=== PATIENT | male | born 1965 | race Caucasian/White ===

== ENCOUNTER 2021-03-23 14:56 | Emergency (ER) | payer OTHER, SELFPAY ==
--- NOTE | ~2021-03-23 | CT_ITS ---
EXAMINATION: CT abdomen pelvis w con DATE: 03/23/2021 18:46 INDICATION: Generalized abdominal pain. TECHNIQUE: Computed tomography (CT) of the abdomen and pelvis was performed with 100 mL Omnipaque 350 intravenous contrast. Automated exposure control and iterative reconstruction technique were employe d. The dose-length product was 596.28 mGy-cm. COMPARISON: None. FINDINGS: The visualized portions of the lung bases demonstrate patchy groundglass opacities in the l ower lobes, right middle lobe, and lingula. There is mild atelectasis bilaterally. No pleural effusio n. The heart size is normal. No pericardial effusion. There is diffuse hepatic steatosis. There are c hanges of cholecystectomy. Calcifications in the spleen are consistent with old granulomatous disease . The pancreas and adrenal glands are normal. There are cysts in the kidneys measuring up to 24 mm on the left. There are bilateral inguinal hernias containing fat. There is diverticulosis of the colon without evidence of diverticulitis. The appendix is not visualized. There are no dilated loops of bow el. There is moderate lumbar spondylosis and mild thoracic spondylosis. IMPRESSION: 1. Multifocal lung disease, likely atypical pneumonia such as COVID-19 pneumonia. Reviewed, dictated and finalized at location A. IMPRESSION: 1. Multifocal lung disease, likely atypical pneumonia such as COVID-19 pneumoni a.
[2021-03-23 15:11] VITALS: BP 135/86; PULSE 97; RESP 16; TEMP 37.6; O2SAT 97
[2021-03-23 15:34] LABS: Basophils Percent Auto 0.4 % (0.2-1.2); Hemoglobin 17.9 g/dL (14.0-18.0); Immature Granulocyte Absolute 0.06 K/mm3 (0.00-0.031); Immature Granulocyte Percent A 0.8 % (0-0.5); Lymphocytes Absolute Auto 1.23 K/mm3 (0.9-3.2); Lymphocytes Percent Auto 15.9 % (18.3-44.2); Mean Corpuscular HGB Conc 33.8 g/dl (32-36); Mean Corpuscular Hemoglobin 26.2 pg (26-34); Mean Corpuscular Volume 77.6 fl (80-100); Mean Platelet Volume 9.6 fl (7.4-10.4); Monocytes Absolute Auto 1.5 K/mm3 (0.1-0.6); Neutrophils Absolute Auto 4.9 K/mm3 (1.3-6.7); Neutrophils Percent Auto 63.9 % (45.5-73.1); Platelet Count Result 207 k/mm3 (150-375); Red Blood Count 6.83 M/mm3 (4.6-6.20); White Blood Count 7.7 K/mm3 (4.5-10.0)
[2021-03-23 15:39] LABS: Alanine Aminotransferase 59 U/L (4-50); Albumin Level 4.4 g/dL (3.5-5.1); Alkaline Phosphatase 82 U/L (38-126); Anion Gap 13 mmol/L (8-16); Aspartate Amino Transferase 59 U/L (17-59); Bilirubin,Total 0.9 mg/dL (0.2-1.3); Blood Urea Nitrogen 22 mg/dL (9-20); Calcium 9.1 mg/dL (8.4-10.2); Carbon Dioxide 26 mmol/L (22-30); Chloride 98 mmol/L (98-107); Estimated CRCL calculation 89 ml/min; Estimated Glomerular Filt Rate > 60; Glucose 110 mg/dL (65-110); Lipase 153 U/L (23-300); Potassium 4.1 mmol/L (3.4-5.0); Sodium 137 mmol/L (137-145)
[2021-03-23 15:42] LABS: Add Urine Microscopic? YES; Appearance Urine Clear (Clear); Bilirubin Urine Negative (Negative); Blood Urine 2+ (Negative); Color Urine Yellow (Yellow); Glucose Urine UA Negative (Negative); Ketones Urine Negative (Negative); Leukocyte Esterase Ur Negative LEU/UL (Negative); Mucus Urine Rare /lpf; Nitrate Urine Negative (Negative); Protein Urine 2+ mg/dL (Negative); Specific Grav Ur 1.027 (1.001-1.035); Urobilinogen Urine Negative mg/dL (<2.0); WBC Urine 0-3 /hpf
[2021-03-23 18:00] VITALS: BP 141/98; PULSE 96; RESP 16; O2SAT 96
[2021-03-23 18:45] VITALS: BP 138/93; PULSE 94; RESP 16; O2SAT 95
[2021-03-23] MEDS: SODIUM CHLORIDE 0.9% IV 1,000 ML 999 ML IV CONT (18:48)
--- NOTE | 2021-03-23 19:23 | PC.NURSE ---
Report received and care of pt assumed at this time.
--- NOTE | 2021-03-23 19:56 | ED.NAVMDI ---
HPI - Nausea/Vomiting/Diarrhea General Chief complaint: Nausea/Vomiting/Diarrhea Stated complaint: Vomiting x 2 weeks Time Seen by Provider: 03/23/21 18:06 Source: patient and family Mode of arrival: ambulatory Limitations: no limitations History of Present Illness HPI Narrative: 55-year-old with a history of hypertension was sent from his doctor's office with complaints of nausea, vomiting, diarrhea and abdominal cramping for past 3 days. Patient states that he is unable to keep any fluids down secondary to nausea. However by the time he came to the ER his nausea is much improved. He denies any chest pain or shortness of breath or fever or chills. MD elicited complaint: nausea, vomiting and diarrhea Onset (ago): day(s) (3) Description of vomiting: watery Associated nausea: Yes Associated abdominal pain: Yes Location of pain: diffuse Pain consistency: constant Severity: moderate Quality: cramping Exacerbating factors: none Related Data Home Medications Medication Instructions Recorded Confirmed amlodipine 03/23/21 03/23/21 ciprofloxacin HCl 03/23/21 ondansetron 03/23/21 Allergies Allergy/AdvReac Type Severity Reaction Status Date / Time No Known Allergies Allergy Unknown Verified 03/23/21 18:15 Review of Systems Review of Systems: All systems reviewed & are unremarkable except as noted in HPI and below Constitutional: Constitutional: Reports no additional constitutional complaints Eyes: Eyes: Reports no additional eye complaints ENT: Reports system reviewed and no additional complaints, except as documented Cardiovascular: Cardiovascular: Reports no additional cardiovascular complaints Respiratory: Respiratory: Reports no additional respiratory complaints Gastrointestinal: Gastrointestinal: Reports as per HPI Musculoskeletal: Musculoskeletal: Reports no additional musculoskeletal complaints Neurologic: Reports system reviewed and no additional complaints, except as documented Psychiatric: Psychiatric: Reports no additional psychiatric complaints Exam Narrative: GENERAL: Well-appearing, well-nourished, and in no acute distress. HEAD: Normocephalic, atraumatic. EYES: PERRLA and EOMI. NECK: Supple. CHEST: Clear to auscultation. No respiratory distress. HEART: Regular rate and rhythm. No murmur heard. Normal peripheral pulses. ABDOMEN: Soft, nontender, nondistended, normal active bowel sounds. EXTREMITIES: Normal range of motion. No edema. SKIN: Warm, dry, no rash. NEURO: No focal deficits. Alert and oriented x3. PSYCH: Normal mood and affect. Course Course Emergency Course: I have reviewed his lab work, CT findings. His CT showed basilar Covid pneumonia did a rapid Covid test which was positive. His symptoms more suggestive of Covid infection. His SPO2 levels here are 96 to 98% on room air. Advised him to drink plenty of fluids take Zofran as needed for nausea. And follow-up with Covid precautions. Informed Dr. Celestin about the diagnosis. Vital Signs Vital signs: Vital Signs Temperature 37.6 C H 03/23/21 15:11 Pulse Rate 97 03/23/21 15:11 Respiratory Rate 16 03/23/21 15:11 Blood Pressure 135/86 03/23/21 15:11 Pulse Oximetry 97 03/23/21 15:11 Temperature 37.6 C H 03/23/21 15:11 Pulse Rate 94 03/23/21 18:45 Respiratory Rate 16 03/23/21 18:45 Blood Pressure 138/93 H 03/23/21 18:45 Pulse Oximetry 95 03/23/21 18:45 MDM - Nausea/Vomiting/Diarrhea Differential Diagnosis Differential diagnosis: Likely gastroenteritis and dehydration Lab Data Result diagrams: 03/23/21 15:16 03/23/21 15:16 Labs: Lab Results 03/23/21 03/23/21 03/23/21 Range/Units 15:16 15:16 15:21 WBC 7.7 (4.5-10.0) K/mm3 RBC 6.83 H (4.6-6.20) M/mm3 Hgb 17.9 (14.0-18.0) g/dL Hct 53.0 H (42.0-52.0) % MCV 77.6 L (80-100) fl MCH 26.2 (26-34) pg MCHC 33.8 (32-36) g/dl RDW 14.0 (11.5-14.5) % Plt Count 207 (1
[2021-03-23 20:17] VITALS: BP 134/87; PULSE 93; RESP 26; O2SAT 96
== END 2021-03-23 20:19 | disposition home or self-care (01) ==
PROVIDERS: Emergency Medicine; Emergency Provider Family Medicine; PCP Internal Medicine
DX: U07.1 COVID-19 (principal); K52.9 Noninfective gastroenteritis and colitis, unspecified
CPT/HCPCS: 36415; 74177; 80053; 81001; 83690; 85025; 87426; 96360; 99284; C9803; J7030; Q9967

== ENCOUNTER 2024-02-28 14:49 | Outpatient (CLI) | payer OTHER, SELFPAY ==
--- NOTE | ~2024-02-28 | XR_ITS ---
Thoracic spine: Clinical Indication: Back pain AP and lateral views were performed. No fracture is seen. There is normal alignment of the vertebrae. The intervertebral disc spaces appe ar normal. Paravertebral soft tissues appear normal. Impression: No significant abnormalities noted. Reviewed, dictated and finalized at [facility]. Impression: No significant abnormalities noted.
--- NOTE | ~2024-02-28 | XR_ITS ---
AP view of the pelvis Clinical history: Pain Findings: No acute fracture or dislocation is seen. Osseous alignment is anatomic. Bilateral hip and SI joint spaces are preserved. Soft tissues are unremarkable. Impression: No significant abnormality is seen. Reviewed, dictated and finalized at location [facility]. Impression: No significant abnormality is seen.
--- NOTE | ~2024-02-28 | XR_ITS ---
Cervical Spine: AP, lateral, oblique, open-mouth views Clinical History: Pain Findings: The normal lordotic curve is maintained. The vertebral bodies and posterior elements appea r intact. There are minimal degenerative disc changes, and minimal facet joint degenerative changes. Pre-vertebral soft tissues are unremarkable. Impression: Minimal degenerative spondylitic changes, as above. Reviewed, dictated and finalized at [facility]. Impression: Minimal degenerative spondylitic changes, as above.
--- NOTE | ~2024-02-28 | XR_ITS ---
Lumbosacral Spine: AP and lateral views Clinical History: Pain Findings: The normal lordotic curve is maintained. Possible minimal chronic wedging deformity of L1. There is 3 mm retrolisthesis of L2 over L3. There is severe facet arthropathy from L3 through S1. The intervertebral disc spaces are preserved. The sacroiliac joints are normally outlined. Impression: Possible minimal anterior chronic wedging deformity of L1. Severe facet arthropathy from L3 through S1. 3 mm retrolisthesis of L2 over L3. Reviewed, dictated and finalized at location [facility]. Impression: Possible minimal anterior chronic wedging deformity of L1. Severe facet arthropathy from L3 through S1. 3 mm retrolisthesis of L2 over L3.
== END 2024-02-28 14:50 ==
PROVIDERS: PCP Physician Assistant Medical; Visit Provider Chiropractor
DX: M54.2 Cervicalgia (principal); M54.6 Pain in thoracic spine; M54.50 Low back pain, unspecified
CPT/HCPCS: 72050; 72070; 72100; 72170